=== PATIENT | male | born 1990 | race Caucasian/White ===

== ENCOUNTER 2019-07-23 10:13 | Emergency (ER) | payer BC, OTHER ==
[~2019-07-23] VITALS: Ht 180.3 cm; Wt 90.9 kg
[2019-07-23] MEDS ORDERED: RABIES IMMUNE GLOBULIN 1500 INTERNATIONAL UNIT/5ML VIAL (90375) IM ONE ×2 (10:45→11:00)
[2019-07-23] MEDS ORDERED: RABIES VACCINE HUMAN 2.5 INTERNATIONAL UNITS/ML VIAL (90675) IM ONE (10:45)
[2019-07-23] MEDS ORDERED: RABIES IMMUNE GLOBULIN 300 INTERNATIONAL UNITS/1ML VIAL (90375) IM ONE (11:00)
[2019-07-23 11:43] VITALS: BP 144/94
== END 2019-07-23 11:48 | disposition home or self-care (01) ==
LOC: M ED 10:13
DX: Z20.3 Contact with and (suspected) exposure to rabies (principal); Z23 Encounter for immunization; Z79.899 Other long term (current) drug therapy

== ENCOUNTER 2019-07-26 11:26 | Emergency (ER) | payer BC, OTHER ==
[~2019-07-26] VITALS: Ht 180.3 cm; Wt 91.2 kg
[2019-07-26 11:26] VITALS: BP 166/81
[2019-07-26] MEDS ORDERED: RABIES VACCINE HUMAN 2.5 INTERNATIONAL UNITS/ML VIAL (90675) IM ONE (11:45)
== END 2019-07-26 11:53 | disposition home or self-care (01) ==
LOC: M ED 11:26
DX: Z20.3 Contact with and (suspected) exposure to rabies (principal); Z23 Encounter for immunization

== ENCOUNTER 2019-07-30 10:11 | Emergency (ER) | payer BC, OTHER ==
[~2019-07-30] VITALS: Ht 180.3 cm; Wt 93.1 kg
[2019-07-30] MEDS ORDERED: RABIES VACCINE HUMAN 2.5 INTERNATIONAL UNITS/ML VIAL (90675) IM ONE (11:00)
[2019-07-30 12:04] LABS: BASO % 0.2 % (0.0-1.0); HEMATOCRIT 47.4 % (42.0-52.0); HEMOGLOBIN 16.5 g/dl (13.5-17.5); LYMPH # 1.6 10^3/uL (1.5-5.0); LYMPH % 30.7 % (24.0-44.0); MEAN CORPUSCULAR HGB CONC 34.8 g/dl (32.0-36.5); MONO # 0.5 10^3/uL (0.0-0.8); MONO % 10.2 % (0.0-5.0); NEUTROPHILS # 3.1 10^3/uL (1.5-8.5); NEUTROPHILS % 58.5 % (36.0-66.0); PLATELET COUNT, AUTOMATED 198 10^3/uL (150-450); RED BLOOD COUNT 5.15 10^6/uL (4.30-6.10); WHITE BLOOD COUNT 5.2 10^3/uL (4.0-10.0)
[2019-07-30] MEDS ORDERED: CHLO125TA PO (12:16)
[2019-07-30 12:24] VITALS: BP 163/93
--- NOTE | 2019-07-30 19:28 | ECGEPIP ---
[facility] - ED Test Date: 2019-07-30 Pat Name: LITTLE RIDDLE Department: Room: - Gender: Male Point Of Care Specialist: BETSY : 1990 Requested By: MAHI Mcallister PA-C Order Number: [id number] Reading MD: Chandu Haider Measurements Intervals [place] Rate: 71 P: 77 GA: 146 QRS: 76 QRSD: 91 T: 54 QT: 369 QTc: 402 Interpretive Statements SINUS RHYTHM WITH SINUS ARRHYTHMIA BENIGN EARLY REPOLARIZATION NO PRIORS FOR COMPARISON Electronically Signed on 07-30-2019 19:27:36 EDT by Chandu Haider
== END 2019-07-30 12:30 | disposition home or self-care (01) ==
LOC: M ED 10:11
DX: Z20.3 Contact with and (suspected) exposure to rabies (principal); Z23 Encounter for immunization; I10 Essential (primary) hypertension

== ENCOUNTER 2019-08-06 05:19 | Emergency (ER) | payer BC, OTHER ==
[~2019-08-06] VITALS: Ht 180.3 cm; Wt 90.9 kg
[2019-08-06 05:19] VITALS: BP 161/93
[~2019-08-06 05:19] MED LIST: CHLO125TA PO
[2019-08-06] MEDS ORDERED: RABIES VACCINE HUMAN 2.5 INTERNATIONAL UNITS/ML VIAL (90675) IM ONE (06:00)
== END 2019-08-06 05:59 | disposition home or self-care (01) ==
LOC: M ED 05:19
DX: Z20.3 Contact with and (suspected) exposure to rabies (principal); Z23 Encounter for immunization; I10 Essential (primary) hypertension